=== PATIENT | male | born 1990 | race African-American/Black ===

== ENCOUNTER 2020-10-23 04:55 | Emergency (ER) | payer MEDICAID ==
[~2020-10-23] VITALS: Ht 175.3 cm; Wt 65.8 kg
== END 2020-10-23 06:38 | disposition left against medical advice (07) ==
LOC: ER 04:55
DX: Z00.00 Encounter for general adult medical examination without abnormal findings (principal); Z53.21 Procedure and treatment not carried out due to patient leaving prior to being seen by health care provider

== ENCOUNTER 2021-01-12 02:17 | Emergency (ER) | payer MEDICAID ==
[~2021-01-12] VITALS: Ht 175.3 cm; Wt 63.5 kg
[2021-01-12 03:00] LABS: Calcium 9.5 mg/dL (8.5-10.1)
[2021-01-12 03:03] LABS: Bilirubin, Total 0.5 mg/dL (0.2-1.0); Total Protein 10.1 g/dL (6.4-8.2)
[2021-01-12 03:04] LABS: Basophils # (auto) 0 10 ^3/uL (0-0.2); Basophils % (auto) 0.4 % (0.0-2.0); Eosinophils # (auto) 0 10 ^3/uL (0-0.8); Hematocrit 40.9 % (41.0-53.0); Hemoglobin 13.8 g/dL (13.5-17.5); Lymphocytes # (auto) 0.2 10 ^3/uL (0.4-5.4); Mean Corpuscular Hemoglobin 31.9 pg (28.0-32.0); Mean Corpuscular Hgb Conc. 33.6 g/dL (32.0-36.0); Mean Corpuscular Volume 94.7 fL (80.0-100.0); Monocytes # (auto) 0.4 10 ^3/uL (0-1.3); Monocytes % (auto) 3.6 % (0.0-12.0); Neutrophils # (auto) 11.3 10 ^3/uL (1.6-8.6); Red Blood Cells 4.32 10^6/uL (4.5-5.90); Red Cell Distribution Width 17.2 % (11.8-14.3)
[2021-01-12] MEDS ORDERED: LORazepam 2MG/ML-1ML VIAL IV ONE (04:15)
[2021-01-12] MEDS ORDERED: SODIUM CHLORIDE 0.9% 1,000 ML IV ONE (04:15)
[2021-01-12] MEDS ORDERED: ONDANSETRON HCL 4 MG/2 ML VIAL IV ONE (04:15)
[2021-01-12] MEDS ORDERED: FAMOTIDINE (10MG/ML) 2ML VL IV ONE (04:15)
[2021-01-12 05:02] VITALS: BP 160/88
== END 2021-01-12 05:38 | disposition home or self-care (01) ==
LOC: ER 02:17
DX: K29.70 Gastritis, unspecified, without bleeding (principal); F10.139 Alcohol abuse with withdrawal, unspecified; Y90.9 Presence of alcohol in blood, level not specified
CPT/HCPCS: 36415; 80053; 82150; 83690; 85025; 93005; 96361; 96374; 96375; 99284; J2060; J2405; J3490; J7030

== ENCOUNTER 2021-01-25 09:22 | Inpatient (IN) | payer OTHER, MEDICAID ==
[~2021-01-25] VITALS: Ht 177.8 cm; Wt 59.7 kg
[2021-01-25 10:36] LABS: Basophils # (auto) 0 10 ^3/uL (0-0.2); Basophils % (auto) 0.4 % (0.0-2.0); Eosinophils # (auto) 0 10 ^3/uL (0-0.8); Hematocrit 43.5 % (41.0-53.0); Lymphocytes # (auto) 1.4 10 ^3/uL (0.4-5.4); Lymphocytes % (auto) 11.4 % (10.0-50.0); Mean Corpuscular Hemoglobin 31.1 pg (28.0-32.0); Mean Corpuscular Hgb Conc. 32.2 g/dL (32.0-36.0); Mean Corpuscular Volume 96.5 fL (80.0-100.0); Monocytes % (auto) 8.1 % (0.0-12.0); Neutrophils # (auto) 10.2 10 ^3/uL (1.6-8.6); Neutrophils % (auto) 80.1 % (37.0-80.0); Nucleated Red Blood Cells % 0.2 %; Red Blood Cells 4.51 10^6/uL (4.5-5.90); Red Cell Distribution Width 18.8 % (11.8-14.3); White Blood Cell 12.7 10^3/uL (4.4-10.8)
[2021-01-25 11:05] LABS: Albumin 5.1 g/dL (3.4-5.0); Anion Gap 26 (5-15); Blood Alcohol < 3.0 mg/dL (0-5); Blood Urea Nitrogen 11 mg/dL (7-18); Calcium 9.8 mg/dL (8.5-10.1); Carbon Dioxide 12 mmol/L (21-32); Chloride 102 mmol/L (98-107); Glucose 134 mg/dL (74-106); Sodium 140 mmol/L (136-145)
[2021-01-25 11:15] LABS: Alanine Aminotransferase 146 U/L (16-61); Alkaline Phosphatase 80 U/L (45-117); Aspartate Aminotransferase 233 U/L (15-37); GFR African American 56 mL/min; GFR Non-African American 46 mL/min; Total Protein 9.9 g/dL (6.4-8.2)
[2021-01-25] MEDS ORDERED: SODIUM CHLORIDE 0.9% 1,000 ML IV ONE ×2 (12:45)
[2021-01-25] MEDS ORDERED: chlordiazePOXIDE HCL 25 MG CAP PO ONE (12:45)
[2021-01-25] MEDS ORDERED: THIAMINE 100mg/ml INJ (200mg/2ml VIAL) IV ONE (12:45)
[2021-01-25] MEDS ORDERED: cefTRIAXone 1GM/50ML D5W 50 ML IV ONE (18:30)
[2021-01-25] MEDS ORDERED: ONDANSETRON HCL 4 MG/2 ML VIAL IV ONE (20:00)
[2021-01-26] MEDS ORDERED: TEMAZEPAM 15 MG CAP PO PRN (01:00)
[2021-01-26] MEDS ORDERED: ONDANSETRON HCL 4 MG/2 ML VIAL IV PRN (01:00)
[2021-01-26] MEDS ORDERED: chlordiazePOXIDE HCL 25 MG CAP PO PRN (01:00)
[2021-01-26] MEDS ORDERED: SODIUM CHLORIDE 0.9% 500 ML IV ONE (01:00)
[2021-01-26 04:55] VITALS: BP 139/94
[2021-01-26 09:00] VITALS: BP 127/78
[2021-01-26] MEDS: PANTOPRAZOLE 40 MG TAB PO SCH (09:47)
[2021-01-26 11:38] LABS: Basophils # (auto) 0.1 10 ^3/uL (0-0.2); Basophils % (auto) 0.8 % (0.0-2.0); Eosinophils # (auto) 0 10 ^3/uL (0-0.8); Eosinophils % (auto) 0.2 % (0.0-7.0); Hematocrit 36.4 % (41.0-53.0); Hemoglobin 12.2 g/dL (13.5-17.5); Lymphocytes # (auto) 1.3 10 ^3/uL (0.4-5.4); Lymphocytes % (auto) 17.6 % (10.0-50.0); Mean Corpuscular Hemoglobin 31.3 pg (28.0-32.0); Mean Corpuscular Hgb Conc. 33.5 g/dL (32.0-36.0); Mean Corpuscular Volume 93.5 fL (80.0-100.0); Monocytes # (auto) 0.6 10 ^3/uL (0-1.3); Neutrophils # (auto) 5.2 10 ^3/uL (1.6-8.6); Neutrophils % (auto) 73.4 % (37.0-80.0); Red Blood Cells 3.89 10^6/uL (4.5-5.90); Red Cell Distribution Width 18.5 % (11.8-14.3); White Blood Cell 7.1 10^3/uL (4.4-10.8)
[2021-01-26 11:46] LABS: INR 1.07 (0.9-1.15)
[2021-01-26 11:55] LABS: Chloride 111 mmol/L (98-107); Potassium 3.9 mmol/L (3.5-5.1); Sodium 141 mmol/L (136-145)
[2021-01-26] MEDS ORDERED: FOLIC ACID 1 MG, MULTIPLE VITAMIN 10 ML, MAGNESIUM SULF SDV 50% 8 MEQ, THIAMINE INJ 100... INJ SCH ×5 (12:00)
[2021-01-26 12:05] LABS: Alanine Aminotransferase 107 U/L (16-61); Albumin 3.7 g/dL (3.4-5.0); Alkaline Phosphatase 63 U/L (45-117); Amylase 264 U/L (25-115); Anion Gap 9 (5-15); Aspartate Aminotransferase 183 U/L (15-37); BUN/Creatinine Ratio 7.4; Bilirubin, Total 0.7 mg/dL (0.2-1.0); Blood Urea Nitrogen 10 mg/dL (7-18); Calcium 8.9 mg/dL (8.5-10.1); Carbon Dioxide 21 mmol/L (21-32); GFR African American 79 mL/min; GFR Non-African American 66 mL/min; Glucose 57 mg/dL (74-106); Lipase 1705 U/L (73-393); Total Protein 7.6 g/dL (6.4-8.2)
[2021-01-26 13:00] VITALS: BP 135/88
[2021-01-26 13:31] LABS: Cholesterol 219 mg/dL (< 200); HDL Cholesterol 95 mg/dL (40-59); LDL Cholesterol 83 mg/dL (< 100); Triglycerides 126 mg/dL (< 150)
[2021-01-26 17:00] VITALS: BP 150/95
[2021-01-26 22:00] VITALS: BP 125/77
[2021-01-27 05:00] VITALS: BP 130/97
[2021-01-27 05:32] LABS: Basophils # (auto) 0 10 ^3/uL (0-0.2); Basophils % (auto) 0.6 % (0.0-2.0); Eosinophils # (auto) 0 10 ^3/uL (0-0.8); Eosinophils % (auto) 0.3 % (0.0-7.0); Hematocrit 37.7 % (41.0-53.0); Hemoglobin 12.8 g/dL (13.5-17.5); Lymphocytes # (auto) 1.8 10 ^3/uL (0.4-5.4); Mean Corpuscular Hemoglobin 31.4 pg (28.0-32.0); Mean Corpuscular Hgb Conc. 33.8 g/dL (32.0-36.0); Mean Corpuscular Volume 92.8 fL (80.0-100.0); Monocytes # (auto) 0.5 10 ^3/uL (0-1.3); Monocytes % (auto) 9.6 % (0.0-12.0); Neutrophils # (auto) 2.9 10 ^3/uL (1.6-8.6); Neutrophils % (auto) 55.5 % (37.0-80.0); Nucleated Red Blood Cells % 0.2 %; Red Blood Cells 4.06 10^6/uL (4.5-5.90); Red Cell Distribution Width 18.4 % (11.8-14.3); White Blood Cell 5.3 10^3/uL (4.4-10.8)
[2021-01-27 06:23] LABS: Potassium 3.6 mmol/L (3.5-5.1)
[2021-01-27 06:30] LABS: Albumin 3.8 g/dL (3.4-5.0); BUN/Creatinine Ratio 6.4; Bilirubin, Total 1.1 mg/dL (0.2-1.0); Calcium 9.1 mg/dL (8.5-10.1); Total Protein 7.8 g/dL (6.4-8.2)
[2021-01-27] MEDS: PANTOPRAZOLE 40 MG TAB PO SCH (08:14)
[2021-01-27 09:00] VITALS: BP 136/86
[2021-01-27 13:00] VITALS: BP 119/70
[2021-01-27 16:40] VITALS: BP 119/72
== END 2021-01-27 16:32 | disposition home or self-care (01) | DRG 439 ==
LOC: ER 09:22 → OVERFLOW 01-26 00:46 → WEST WING 01-26 03:39
PROVIDERS: ADMIT Nurse Practitioner; ATTEND Internal Medicine
DX: K85.90 Acute pancreatitis without necrosis or infection, unspecified (principal); N17.9 Acute kidney failure, unspecified; R65.10 Systemic inflammatory response syndrome (SIRS) of non-infectious origin without acute organ dysfunction; F10.239 Alcohol dependence with withdrawal, unspecified; E78.5 Hyperlipidemia, unspecified; E86.0 Dehydration; Z20.822 Contact with and (suspected) exposure to COVID-19; K20.90 Esophagitis, unspecified without bleeding; R07.89 Other chest pain; R73.9 Hyperglycemia, unspecified; R74.01 Elevation of levels of liver transaminase levels; K29.00 Acute gastritis without bleeding; F12.90 Cannabis use, unspecified, uncomplicated; Z79.899 Other long term (current) drug therapy; Z81.1 Family history of alcohol abuse and dependence
CPT/HCPCS: 36415; 74176; 80053; 80061; 80320; 82150; 83036; 83690; 83735; 84443; 84484; 85025; 85610; 87426; 93005; 93306; 96361; 96365; 96375; 96376; G0378; J0696; J2405

== ENCOUNTER 2021-03-24 11:31 | Emergency (ER) | payer MEDICAID, OTHER ==
[~2021-03-24] VITALS: Ht 180.3 cm; Wt 63.5 kg
[2021-03-24] MEDS ORDERED: LORazepam 2MG/ML-1ML VIAL IV ONE (12:00)
[2021-03-24 13:45] LABS: Basophils # (auto) 0 10 ^3/uL (0-0.2); Basophils % (auto) 0.4 % (0.0-2.0); Eosinophils # (auto) 0 10 ^3/uL (0-0.8); Eosinophils % (auto) 0.1 % (0.0-7.0); Hemoglobin 12.9 g/dL (13.5-17.5); Lymphocytes # (auto) 0.5 10 ^3/uL (0.4-5.4); Lymphocytes % (auto) 10.3 % (10.0-50.0); Mean Corpuscular Hemoglobin 32.5 pg (28.0-32.0); Mean Corpuscular Hgb Conc. 33.9 g/dL (32.0-36.0); Mean Corpuscular Volume 95.9 fL (80.0-100.0); Monocytes # (auto) 0.4 10 ^3/uL (0-1.3); Monocytes % (auto) 8.4 % (0.0-12.0); Neutrophils # (auto) 3.6 10 ^3/uL (1.6-8.6); Neutrophils % (auto) 80.8 % (37.0-80.0); Nucleated Red Blood Cells % 0.1 %; Red Blood Cells 3.96 10^6/uL (4.5-5.90); Red Cell Distribution Width 15.7 % (11.8-14.3); White Blood Cell 4.4 10^3/uL (4.4-10.8)
[2021-03-24 13:47] LABS: Albumin 3.9 g/dL (3.4-5.0); Anion Gap 9 (5-15); Blood Urea Nitrogen 7 mg/dL (7-18); Calcium 9.4 mg/dL (8.5-10.1); Carbon Dioxide 27 mmol/L (21-32); Chloride 96 mmol/L (98-107); Potassium 3.3 mmol/L (3.5-5.1); Sodium 132 mmol/L (136-145)
[2021-03-24 13:51] LABS: Alanine Aminotransferase 57 U/L (16-61); Alkaline Phosphatase 64 U/L (45-117); Aspartate Aminotransferase 140 U/L (15-37); BUN/Creatinine Ratio 5.8; Bilirubin, Total 0.9 mg/dL (0.2-1.0); GFR African American 90 mL/min; GFR Non-African American 74 mL/min; Glucose 86 mg/dL (74-106); Total Protein 7.9 g/dL (6.4-8.2)
[2021-03-24 13:53] LABS: Blood Alcohol < 3.0 mg/dL (0-5)
[2021-03-24 14:43] LABS: Urine Bacteria FEW /hpf (None Seen); Urine Blood Negative /uL (Negative); Urine Specific Gravity 1.007 (1.001-1.035); Urine WBC 1 /hpf (0 - 3)
[2021-03-24 15:03] LABS: Amphetamine Screen, Urine NEGATIVE (NEGATIVE); Barbiturate Scree,Urine NEGATIVE (NEGATIVE); Benzodiazephine Screen, Urine NEGATIVE (NEGATIVE); Cannabinoid Screen, Urine POSITIVE (NEGATIVE); Cocaine Screen, Urine NEGATIVE (NEGATIVE); Opiate Scree,Urine NEGATIVE (NEGATIVE); Phencyclidine Screen, Urine NEGATIVE (NEGATIVE)
[2021-03-24 15:17] LABS: Alcohol, Urine < 3.0 mg/dL (0-10)
[2021-03-24] MEDS ORDERED: chlordiazePOXIDE HCL 25 MG CAP PO ONE (17:30)
[2021-03-24 18:32] VITALS: BP 118/84
== END 2021-03-24 18:33 | disposition home or self-care (01) ==
LOC: ER 11:31 → EDBD 11:31 → ER 18:33
DX: R56.9 Unspecified convulsions (principal); F10.139 Alcohol abuse with withdrawal, unspecified; Y90.0 Blood alcohol level of less than 20 mg/100 ml
CPT/HCPCS: 36415; 70450; 80053; 80307; 80320; 81001; 85025; 93005; G0481

== ENCOUNTER 2024-04-11 04:31 | Inpatient (IN) | payer MEDICAID, OTHER ==
[~2024-04-11] VITALS: Ht 182.9 cm; Wt 62.0 kg
[2024-04-11] MEDS: SODIUM CHLORIDE 0.9% 1,000 ML IV ONE ×3 (05:09→07:36)
[2024-04-11] MEDS: ONDANSETRON HCL 4 MG/2 ML VIAL IV ONE (05:09)
--- NOTE | 2024-04-11 05:56 | DVH ---
Exam: CT CT AB PEL WO CON-NO ORAL OR IV History: N/V GI BLEED Comparison Study: [facility] on DOS: 01/26/21, CT ABD PELVIS WO CONTRAST on DOS: 01/25/21 Technique: Multidetector spiral CT of the abdomen was performed from lung bases to pubic symphysis. Imaging was performed without IV contrast. Axial, coronal and sagittal multiplanar reformats were ob tained from the axial data set by the technologist. Radiation Dose : 1. Abdomen/Pelvis: CTDIvol 5.1 mGy, DLP 274.9 mGy*cm. Findings: Evaluation of solid organs is limited due to lack of intravenous contrast use. Lung Bases: No acute or significant lung base finding. Normal heart size. No pleural or pericardial effusion. Liver: Hepatic steatosis. Gallbladder and Biliary Tree: Cholelithiasis noted without secondary findings of cholecystitis or izaiah iary obstruction. Spleen: Unremarkable Pancreas: The pancreas is grossly normal in appearance. Adrenal Glands: Unremarkable Kidneys: Kidneys are grossly normal without calculi or hydronephrosis. Bladder: Grossly unremarkable for degree of distention. Bowel: The stomach is grossly normal in appearance. Moderate diffuse colonic bowel wall thickening. The appendix is not visualized; however, no secondary findings of acute appendicitis identified. Ascites: Absent Lymphadenopathy: No mesenteric, retroperitoneal or periportal lymphadenopathy. Abdominal Wall and Mesentery: Unremarkable. Vasculature: The visualized abdominal aorta is normal in size and caliber. Evaluation of abdominal a nd pelvic vessels is limited due to lack of intravenous contrast. Pelvic Organs: Unremarkable Musculoskeletal: No aggressive focal bony lesions, acute fractures or dislocation. IMPRESSION: Moderate diffuse colonic bowel wall thickening may be related to colitis. Radiation optimization: All CT scans at this facility use at least one of these dose optimization lizet hniques: automated exposure control mA and/or kV adjustment per patient size (includes targeted exam s where dose is matched to clinical indication) or iterative reconstruction.
[2024-04-11 06:08] VITALS: PULSE 86; RESP 16; O2SAT 100
[2024-04-11 06:46] LABS: Urine Bacteria None Seen /hpf (None Seen)
[2024-04-11] MEDS: PANTOPRAZOLE 40 MG/10 ML VIAL INJ IV ONE (06:53)
--- NOTE | 2024-04-11 07:05 | ED.PDOC ---
GI ASSESSMENT HPI Comments 33 y.o male with PMH of seizures, ETOH and marijuana abuse, presents to the ED for a chief complaint of diffused abdominal pain associated with tarry stool and emesis that started one day ago. Patient reports symptoms are similar to previous events when he tries to ween off alcohol and marijuana. Patient admits to drinking about 1-2 shots of Vodka a day and smokes marijuana daily. Patient has been seen for withdrawals. No fever, chills, blood clot output, urinary symptoms reported. Chief Complaint: GI Bleed Time Seen by MD: 06:30 Primary Care Provider: UNKNOWN Reviewed Notes: Nurses Notes, Medications, Allergies Allergies: Coded Allergies: NO KNOWN ALLERGIES (Unverified , 01/12/21) Home Meds No Active Prescriptions or Reported Meds Information Source: Patient Mode of Arrival: Ambulatory Timing: Days (1) Duration: Since onset Quality: Aching Vomitus: Hard, Tarry Black Stool: Tarry Severity: Moderate Recent: Ingestion of ETOH Recent Hx of: None Pain Location: Diffuse Modifying Factors: Nothing Associated sign and symptoms: Nausea, Vomiting, Hematemesis, Melena, Abdominal Pain Past Medical History PAST MEDICAL HISTORY: Seizures Surgical History: Denies all surgeries Family History Family History: Reviewed,noncontributory to illness Social History Smoker: Non-Smoker Alcohol: Heavy Drugs: Marijuana Lives In: Home Constitutional: denies: chills, diaphoresis, fatigue, fever, malaise, sweats, weakness, others EENTM: denies: blurred vision, double vision, ear bleeding, ear discharge, ear drainage, ear pain, ear ringing, eye pain, eye redness, hearing loss, mouth pain, mouth swelling, nasal discharge, nose bleeding, nose congestion, nose pain, photophobia, tearing, throat pain, throat swelling, voice changes, others Respiratory: denies: cough, hemoptysis, orthopnea, SOB at rest, shortness of breath, SOB with excertion, stridor, wheezing, others Cardiovascular: denies: chest pain, dizzy spells, diaphoresis, Dyspnea on exert ion, edema, irregular heart beat, left arm pain, lightheadedness, palpitations, PND, syncope, others Gastrointestinal: reports: abdominal pain, hematemesis, melena, nausea, rectal bleeding, vomiting; denies: abdomen distended, blood streaked bowels, constipated, diarrhea, dysphagia, difficulty swallowing, poor appetite, poor fluid intake, rectal pain, others Genitourinary: denies: burning, dysuria, flank pain, frequency, hematuria, incontinence, penile discharge, penile sore, pain, testicle pain, testicle swelling, urgency, others Neurological: denies: dizziness, fainting, headache, left sided numbness, left sided weakness, numbness, paresthesia, pre-existing deficit, right sided numbness, right sided weakness, seizure, speech problems, tingling, tremors, weakness, others Musculoskeletal: denies: back pain, gout, joint pain, joint swelling, muscle pain, muscle stiffness, neck pain, others Integumetry: denies: bruises, change in color, change in hair/nails, dryness, laceration, lesions, lumps, rash, wounds, others Allergic/Immunocompromised: denies: Difficulty Healing, Frequent Infections, Hives, Itching, others Hematologic/Lymphatic: denies: anemia, blood clots, easy bleeding, easy bruising, swollen glands, others Endocrine: denies: excessive hunger, excessive sweating, excessive thirst, excessive urination, flushing, intolerance to cold, intolerance to heat, unexplained weight gain, unexplained weight loss, others Psychiatric: denies: anxiety, bipolar disorder, depression, hopeless, panic disorder, schizophrenia, sleepless, suicidal, others All Other Systems: Reviewed and Negative Physical Exam General Appearance: Moderate Distress HEENT: Normal ENT Inspection, Pharynx Normal, TMs Normal Neck: Full Range of Motion, Non-Tender, Normal, Normal Inspection Respiratory: Chest Non-Tender, Lungs Clear, No Accessory Muscle Use, No Re spiratory Distress, Normal Breath Sounds Cardiovascular: No Edema, No JVD, No Murmur, No Gallop, Normal Peripheral Pulses, Regular Rate/Rhythm Breast Exam: Deferred Gastrointestinal: No Organomegaly, Non Tender, No Pulsatile Mass, Normal Bowel Sounds, Soft Genitalia: Deferred Pelvic: Deferred Rectal: Deferred Extremities: No calf tenderness, Normal capillary refill, Normal inspection, Normal range of motion, Non-tender, No pedal edema Musculoskeletal : Apperance: Normal Neurologic: Alert, merchant miller II-XII nml as Tested, No Motor Deficits, Normal Affect, Normal Mood, No Sensory Deficits Cerebellar Function: NOT DONE Reflexes: NOT DONE Skin: Dry, Normal Color, Warm Peripheral Pulses: 3+ Radial (R), 3+ Radial (L) Lymphatic: No Adenopathy Was a procedure done? Was a procedure done?: No GI differential Dx Differential Diagnosis: Constipation, Diverticular disease, Esophagitis, Gastritis/PUD, Gastroenteritis, Drug toxicity, Anemia, Esophageal Varicies Other Differential Diagnosis ETOH abuse, withdrawals X-Ray, Labs, Meds, VS Vital Signs Date Time Temp Pulse Resp B/P (MAP) Pulse Ox O2 Delivery O2 Flow Rate FiO2 04/11/24 06:08 86 16 100 Room Air* 0 21 04/11/24 06:07 98.4 86 16 173/85 (114) 100 98.4 04/11/24 04:38 99.9 128 20 142/85 (104) 98 Lab Test 04/11/24 06:20 04/11/24 04:57 Range/Units White Blood Count Pending Red Blood Count Pending Hemoglobin Pending Hematocrit Pending Mean Corpuscular Volume Pending Mean Corpuscular Hemoglobin Pending Mean Corpuscular Hemoglobin Concent Pending Red Cell Distribution Width Pending Platelet Count Pending Mean Platelet Volume Pending Neutrophils (%) (Auto) Pending Lymphocytes (%) (Auto) Pending Monocytes (%) (Auto) Pending Basophils (%) (Auto) Pending Neutrophils # (Auto) Pending Lymphocytes # (Auto) Pending Monocytes # (Auto) Pending Sodium Level Pending Potassium Level Pending Chloride Level Pending Carbon Dioxide Level Pending Anion Gap Pending Blood Urea Nitrogen Pending Creatinine Pending Glomerular Filtration Rate Calc Pending BUN/Creatinine Ratio Pending Serum Glucose Pending Calcium Level Pending Total Bilirubin Pending Aspartate Amino Transferase (AST) Pending Alanine Aminotransferase (ALT) Pending Alkaline Phosphatase Pending Total Protein Pending Albumin Pending Lipase Pending Urine Color Pending Urine Clarity Pending Urine pH Pending Urine Specific [place] Pending Urine Protein Pending Urine Ketones Pending Urine Blood Pending Urine Nitrite Pending Urine Bilirubin Pending Urine Urobilinogen Pending Urine Leukocyte Esterase Pending Urine RBC Pending Urine WBC Pending Urine Squamous Epithelial Cells Pending Urine Bacteria Pending Urine Glucose Pending Current Medications Medications (Trade) Dose Ordered Sig/Mack Route Start Time Stop Time Status Last Admin Sodium Chloride 1,000 ml @ 1,000 mls/hr Q1H ONCE IV 04/11/24 05:00 04/11/24 05:59 DC 04/11/24 05:09 Ondansetron HCl (Zofran) 4 mg ONCE ONCE IV 04/11/24 05:00 04/11/24 05:01 DC 04/11/24 05:09 Pantoprazole Sodium (Protonix) 40 mg ONCE ONCE IV 04/11/24 06:45 04/11/24 06:46 DC 04/11/24 06:53 Exam: CT CT AB PEL WO CON-NO ORAL OR IV History: N/V GI BLEED Comparison Study: [facility] on DOS: 01/26/21, CT ABD PELVIS WO CONTRAST on DOS: 01/25/21 Technique: Multidetector spiral CT of the abdomen was performed from lung bases to pubic symphysis. Imaging was performed without IV contrast. Axial, coronal and sagittal multiplanar reformats were obtained from the axial data set by the technologist. Radiation Dose : 1. Abdomen/Pelvis: CTDIvol 5.1 mGy, DLP 274.9 mGy*cm. Findings: Evaluation of solid organs is limited due to lack of intravenous contrast use. Lung Bases: No acute or significant lung base finding. Normal heart size. No pleural or pericardial effusion. Liver: Hepatic steatosis. Gallbladder and Biliary Tree: Cholelithiasis noted without secondary findings of cholecystitis or biliary obstruction. Spleen: Unremarkable Pancreas: The pancreas is grossly normal in appearance. Adrenal Glands: Unremarkable Kidneys: Kidneys are grossly normal without calculi or hydronephrosis. Bladder: Grossly unremarkable for degree of distention. Bowel: The stomach is grossly normal in appearance. Moderate diffuse colonic bowel wall thickening. The appendix is not visualized; however, no secondary findings of acute appendicitis identified. Ascites: Absent Lymphadenopathy: No mesenteric, retroperitoneal or periportal lymphadenopathy. Abdominal Wall and Mesentery: Unremarkable. Vasculature: The visualized abdominal aorta is normal in size and caliber. Evaluation of abdominal and pelvic vessels is limited due to lack of intravenous contrast. Pelvic Organs: Unremarkable Musculoskeletal: No aggressive focal bony lesions, acute fractures or dislocation. IMPRESSION: Moderate diffuse colonic bowel wall thickening may be related to colitis. Radiation optimization: All CT scans at this facility use at least one of these dose optimization techniques: automated exposure control mA and/or kV adjustment per patient size (includes targeted exams where dose is matched to clinical indication) or iterative reconstruction. Patient alert. Came in because of vomiting up blood. Vitals stable. Answering questions. Possible seizure. History of seizure. He is on Keppra. Was given Protonix. Continues to smoke marijuana. Continues to drink alcohol. Counseled patient on effects of alcohol for 15 minutes. Reviewed his previous visit. Was given Keppra. Explained to the patient. Continue cardiac monitoring. Time of 1ST Reevaluation: 06:59 Reevaluation 1ST: Unchanged Patient Education/Counseling: Diagnosis, Treatment, Prognosis Family Education/Counseling: Diagnosis, Treatment, Prognosis Departure 1 Departure Time of Disposition: 07:11 Impression: Primary Impression: Seizure Additional Impression: GI bleed Qualified Codes: K92.2 - Gastrointestinal hemorrhage, unspecified Disposition: ADMITTED INPATIENT Admit to: Med Surg Condition: Guarded e-Prescriptions No Active Prescriptions or Reported Meds Critical Care Note Critical Care Time?: Yes (90 min-critical care time only) Stability Stability form required: No I personally scribed for FANNIE BUTLER MD ([email or web address]) on 04/11/24 at 07:05. Electronically submitted by Samreen Veronica ([facility]). I personally scribed for FANNIE BUTLER MD ([email or web address]) on 04/11/24 at 07:06. Electronically submitted by Samreen Veronica ([facility]). FANNIE BUTLER MD Apr 11, 2024 07:05
[2024-04-11 07:08] LABS: Basophils # (auto) 0 10 ^3/uL (0-0.2); Basophils % (auto) 0.2 % (0.0-2.0); Eosinophils # (auto) 0 10 ^3/uL (0-0.8); Hematocrit 44.5 % (41.0-53.0); Hemoglobin 14.1 g/dL (13.5-17.5); Lymphocytes # (auto) 0.5 10 ^3/uL (0.4-5.4); Mean Corpuscular Hemoglobin 30.7 pg (28.0-32.0); Mean Corpuscular Hgb Conc. 31.7 g/dL (32.0-36.0); Mean Corpuscular Volume 96.8 fL (80.0-100.0); Monocytes # (auto) 0.6 10 ^3/uL (0-1.3); Monocytes % (auto) 6.9 % (0.0-12.0); Neutrophils # (auto) 7.4 10 ^3/uL (1.6-8.6); Neutrophils % (auto) 86.9 % (37.0-80.0); Platelet Count (auto) 190 10^3/uL (140-450); Red Blood Cells 4.59 10^6/uL (4.5-5.90); Red Cell Distribution Width 17.9 % (11.8-14.3); White Blood Cell 8.5 10^3/uL (4.4-10.8)
[2024-04-11 07:15] LABS: Alanine Aminotransferase 60 U/L (7-40); Albumin 5.5 g/dL (3.2-4.8); Alkaline Phosphatase 62 U/L (46-116); Anion Gap 30.00001 (5-15); Aspartate Aminotransferase 71 U/L (13-40); BUN/Creatinine Ratio 6.6 (10.0-20.0); Blood Urea Nitrogen 13 mg/dL (9-23); Calcium 9.7 mg/dL (8.7-10.4); Chloride 106 mmol/L (98-107); Glucose 109 mg/dL (74-106); Lipase 90 U/L (12-53); Potassium 4.8 mmol/L (3.5-5.1); Sodium 146 mmol/L (136-145)
[2024-04-11 07:16] LABS: Bilirubin, Total 0.8 mg/dL (0.2-1.0); Total Protein 8.9 g/dL (5.7-8.2)
[2024-04-11 07:27] LABS: Carbon Dioxide < 10 mmol/L (20-31)
[2024-04-11 07:35] LABS: Urine Blood 2+ /uL (Negative); Urine Clarity Clear (Clear); Urine Color Light-Yellow (Yellow); Urine Hyaline Cast FEW /lpf (0 - 2); Urine Protein, UAD 2+ (Negative); Urine Urobilinogen 3 mg/dL (Negative); Urine WBC 3 /hpf (0 - 3); Urine pH 5.5 (5.0-9.0)
[2024-04-11] MEDS: THIAMINE 100mg/ml INJ (200mg/2ml VIAL) IV ONE (07:35)
[2024-04-11] MEDS: levETIRAcetam 1000 mg/100ml 100 ML IV ONE (07:35)
[2024-04-11] MEDS ORDERED: LEVE500T3 PO (10:40)
[2024-04-11] MEDS ORDERED: ONDANSETRON HCL 4 MG/2 ML VIAL IV PRN (10:45)
[2024-04-11 12:20] LABS: Amphetamine Screen, Urine Neg (NEGATIVE); Barbiturate Scree,Urine Neg (NEGATIVE); Benzodiazephine Screen, Urine Neg (NEGATIVE); Cannabinoid Screen, Urine Pos (NEGATIVE); Cocaine Screen, Urine Neg (NEGATIVE); Opiate Scree,Urine Neg (NEGATIVE); Phencyclidine Screen, Urine Neg (NEGATIVE)
--- NOTE | 2024-04-11 13:04 | DVHHP2 ---
History of Present Illness Reason for Visit: GI bleed History of Present Illness 33-year-old female presented to the ED with chief complaint of diffuse abdominal pain, associated with tarry stool and dark brown emesis starting 1 day ago, patient reports 10 episodes of vomiting, patient has not vomited for the last 4 hours, patient does not have any abdominal tenderness, no current nausea. Patient states these symptoms seem to coincide with him weaning off alcohol and marijuana. Patient states he drinks 1-2 shots of vodka a day and smokes marijuana daily, patient states his last drink was 2 days ago. Patient denies chest pain, headache, dizziness, diaphoresis, shortness of breath, abdominal pain, no nausea, vomiting, fever, or chills endorsed by the patient. Patient was admitted for further evaluation medical management. Past Medical History Seizures Past Surgical History Denies surgeries Family History Reviewed noncontributory to the management of this case Smoke: No ALCOHOL: heavy Drugs: Marijuana Lives: with Family Review of Systems Constitutional: No: Fever, Chills, Sweats, Weakness, Malaise, Other Eyes: No: Pain, Vision change, Conjunctivae inflammation, Eyelid inflammation, Other, Redness ENT: No: Ear pain, Ear discharge, Nose pain, Nose discharge, Nose congestion, Mouth pain, Mouth swelling, Throat pain, Throat swelling, Other Respiratory: No: Cough, Dry, Shortness of breath, SOB with excertion, Wheezing, Hemoptysis, Pleuritic Pain, Sputum, Wheezing, Other Cardiovascular: No: Chest Pain, Palpitations, Orthopnea, Paroxysmal Noc. Dyspnea, Edema, Lt Headedness, Other Gastrointestinal: Nausea, Vomiting, Abdominal Pain, Melena; No: Diarrhea, Constipation, Hematochezia, Other Genitourinary: No Dysuria, No Frequency, No Incontinence, No Hematuria, No Retention, No Other Musculoskeletal: No: other, neck pain, shoulder pain, arm pain, back pain, hand pain, leg pain, foot pain Neurological: No: Weakness, Numbness, Incoordination, Change in speech, Confusion, Seizures, Other Allergies: Coded Allergies: NO KNOWN ALLERGIES (Unverified , 01/12/21) Medications Current Medications Medications Dose Ordered Sig/Mack Route Start Time Stop Time Status Last Admin Dose Admin Acetaminophen/ Hydrocodone Bitart 1 tab Q4HP PRN PO 04/11/24 10:45 Ondansetron HCl 4 mg Q4HP PRN IV 04/11/24 10:45 Pantoprazole Sodium 40 mg DAILY IV 04/12/24 10:00 Levetiracetam 500 mg BID PO 04/11/24 22:00 Exam Vital Signs Vital Signs Date Time Temp Pulse Resp B/P (MAP) Pulse Ox O2 Delivery O2 Flow Rate FiO2 04/11/24 06:08 86 16 100 Room Air* 0 21 04/11/24 06:07 98.4 173/85 (114) 98.4 General Appearance: Alert, Oriented X3, Cooperative, No acute distress HEENT: Atraumatic, PERRLA, EOMI, Mucous membr. moist/pink Respiratory: Clear to auscultation, Normal air movement Cardiovascular: Regular rate, Normal S1, Normal S2, No murmurs Abdominal: Normal bowel sounds, Soft, No tenderness, No hepatospenomegaly, No masses Extremities: No clubbing, No cyanosis, No edema, Normal pulses, No tenderness /swelling Skin: No rashes, No breakdown, No significant lesion Neuro: Normal gait, Normal speech, Strength at 5/5 X4 ext, Normal tone, Sensation intact, Cranial nerves 3-12 NL, Reflexes 2+ Psych/Mental Status: Mental status NL, Mood NL Labs/Xrays Labs, imaging and ED notes reviewed Labs Test 04/11/24 11:54 04/11/24 06:20 04/11/24 04:57 04/11/24 04:47 Range/Units Plasma/Serum Blood Alcohol 4.4 <10 mg/dL White Blood Count 8.5 4.4-10.8 10^3/uL Red Blood Count 4.59 4.5-5.90 10^6/uL Hemoglobin 14.1 13.5-17.5 g/dL Hematocrit 44.5 41.0-53.0 % Mean Corpuscular Volume 96.8 80.0-100.0 fL Mean Corpuscular Hemoglobin 30.7 28.0-32.0 pg Mean Corpuscular Hemoglobin Concent 31.7 L 32.0-36.0 g/dL Red Cell Distribution Width 17.9 H 11.8-14.3 % Platelet Count 190 140-450 10^3/uL Mean Platelet Volume 9.6 6.9-10.8 fL Neutrophils (%) (Auto) 86.9 H 37.0-80.0 % Lymphocytes (%) (Auto) 6.0 L 10.0-50.0 % Monocytes (%) (Auto) 6.9 0.0-12.0 % Eosinophils (%) (Auto) 0.0 0.0-7.0 % Basophils (%) (Auto) 0.2 0.0-2.0 % Neutrophils # (Auto) 7.4 1.6-8.6 10 ^3/uL Lymphocytes # (Auto) 0.5 0.4-5.4 10 ^3/uL Monocytes # (Auto) 0.6 0-1.3 10 ^3/uL Eosinophils # (Auto) 0 0-0.8 10 ^3/uL Basophils # (Auto) 0 0-0.2 10 ^3/uL Nucleated Red Blood Cells 0.0 % Sodium Level 146 H 136-145 mmol/L Potassium Level 4.8 3.5-5.1 mmol/L Chloride Level 106 98-107 mmol/L Carbon Dioxide Level < 10 *L 20-31 mmol/L Anion Gap 30.31019 H 5-15 Blood Urea Nitrogen 13 9-23 mg/dL Creatinine 1.96 H 0.700-1.30 mg/dL Glomerular Filtration Rate Calc 45 >90 mL/min BUN/Creatinine Ratio 6.6 L 10.0-20.0 Serum Glucose 109 H 74-106 mg/dL Calcium Level 9.7 8.7-10.4 mg/dL Total Bilirubin 0.8 0.2-1.0 mg/dL Aspartate Amino Transferase (AST) 71 H 13-40 U/L Alanine Aminotransferase (ALT) 60 H 7-40 U/L Alkaline Phosphatase 62 46-116 U/L Total Protein 8.9 H 5.7-8.2 g/dL Albumin 5.5 H 3.2-4.8 g/dL Lipase 90 H 12-53 U/L Urine Color Light-yellow Yellow Urine Clarity Clear Clear Urine pH 5.5 5.0-9.0 Urine Specific [place] 1.020 1.001-1.035 Urine Protein 2+ H Negative Urine Ketones 4+ H Negative Urine Blood 2+ H Negative /uL Urine Nitrite Negative Negative Urine Bilirubin 1+ Negative Urine Urobilinogen 3 H Negative mg/dL Urine Leukocyte Esterase Negative Negative /uL Urine RBC 77 0 - 3 /hpf Urine WBC 3 0 - 3 /hpf Urine Squamous Epithelial Cells Few <5 /hpf Urine Bacteria None seen None Seen /hpf Urine Hyaline Casts Few 0 - 2 /lpf Urine Glucose Normal Normal mg/dL Urine Opiates Screen Neg NEGATIVE Urine Fentanyl Screen Neg NEGATIVE Urine Barbiturates Screen Neg NEGATIVE Urine Phencyclidine Screen Neg NEGATIVE Urine Amphetamines Screen Neg NEGATIVE Urine Benzodiazepines Screen Neg NEGATIVE Urine Cocaine Screen Neg NEGATIVE Urine Cannabinoids Screen Pos NEGATIVE Assessment/Plan Assessment/Plan GI bleed Admit medical/surgical Consult GI Hemoglobin stable 14.1g/dL No vomiting x4 hours No mile blood GI prophylaxis-Protonix History of seizures Continue Keppra History ETOH Patient states he has not had alcohol x2 days Substance abuse, marijuana Discussed abstinence FEN/PPX On Protonix VTE prophylaxis not indicated Clear liquid Plan discussed with: Patient My Orders Orders - JAYSON PITTMAN Procedure Category Date Status Time Admit ADMIT 04/11/24 Transmitted 10:36 Code Status CODE 04/11/24 Transmitted 10:36 Vital Signs [facility] 04/11/24 In Process 10:36 Review Orders With [facility] 04/11/24 In Process Adm. 10:36 Up Ad Ivania [facility] 04/11/24 In Process 10:36 Notify Of Changes [facility] 04/11/24 In Process From Base 10:36 Advance Directive [facility] 04/11/24 In Process 10:36 Basic Metabolic Panel LAB 04/12/24 Verified 04:00 Complete Blood Count LAB 04/12/24 Verified 04:00 Patient Condition ORDERS 04/11/24 Transmitted 10:36 Allergies [facility] 04/11/24 In Process 10:36 Hydrocodone-Acet PHA 04/11/24 In Process 5/325mg Tab ([place] 10:45 Ondansetron Hcl PHA 04/11/24 In Process (Zofran) 10:45 Clear Liq Diet DIET 04/11/24 Transmitted Lunch Pantoprazole PHA 04/12/24 In Process (Protonix) 10:00 Levetiracetam Tablet PHA 04/11/24 In Process (Keppra Tablet) 22:00 * Gi Dvh Certified Medical Technician CONS 04/11/24 Transmitted 10:46 Date of Service: Apr 11, 2024 Billing Provider: JAYSON PITTMAN Common Visit Codes: [id number] INP/OBS CARE (HIGH) JAYSON PITTMAN Apr 11, 2024 13:04
[2024-04-11] MEDS: HYDROcodone-ACET 5/325MG TAB PO PRN (14:10)
[2024-04-11 18:30] VITALS: BP 144/68; TEMP 98.4
[2024-04-11 20:00] VITALS: PULSE 86; RESP 16; O2SAT 100
[2024-04-11] MEDS ORDERED: levETIRAcetam 500 MG TAB PO SCH (22:00)
[2024-04-12] MEDS ORDERED: PANTOPRAZOLE 40 MG/10 ML VIAL INJ IV SCH (10:00)
== END 2024-04-11 20:30 | disposition left against medical advice (07) | DRG 253 ==
LOC: ER 04:31 → OVERFLOW 10:36
PROVIDERS: ADMIT Registered Nurse General Practice; ATTEND Registered Nurse General Practice
DX: K92.0 Hematemesis (principal); R56.9 Unspecified convulsions; F12.10 Cannabis abuse, uncomplicated; K92.1 Melena; Z53.29 Procedure and treatment not carried out because of patient's decision for other reasons
CPT/HCPCS: 36415; 74176; 80053; 80307; 80320; 81001; 83690; 85025; 96365; 96375; 99291; G0378; J2405; J2470